=== PATIENT | male | born 1945 | race Caucasian/White ===

== ENCOUNTER 2017-10-11 20:23 | Inpatient (IN) | payer OTHER, MEDICARE ==
[~2017-10-11] VITALS: Ht 170.2 cm; Wt 57.2 kg
[2017-10-11 20:30] VITALS: BP 119/84
--- NOTE | 2017-10-11 20:30 | NUR ---
MS INTERIOR WIRER NOTES DIRECT ADMIT FROM [place] THIS 72 YO MALE A/O X2-3,BROUGHT IN BY AMBULANCE,HOMELESS,WITH CHIEF COMPLAINTS OF PAINFUL URINATION WITH BLOOD.WITH KNOWN HX OF BPH,CAD,AFIB WITH RVR,ANEMIA.NO NKA.WITH PARK CATH INSERTED FROM [place] DRAINING BLOOD TINGED URINE.SALINE LOCK RIGHT HAND INTACT AND PATENT.NOTED SKIN IRRITATION ON NOSE BRIDGE AND RIGHT FOOT.SLIGHT REDNESS ON BUTTOCKS AND SCROTUM.HARD OF HEARING ON BOTH EARS,NO HEARING AID IN USE.CLAIMED HE HAS MULTIPLE FALL PREVIOUSLY BUT NO INJURY.CLAIMED HE WALKS WITH WALKER.FALL RISK PRECAUTION OBSERVED.BED ON LOWEST POSITION AND LOCKED.CALL LIGHT IN REACH,NEEDS ANTICIPATED.
[2017-10-11 21:00] VITALS: BP 119/84
[2017-10-11 21:47] VITALS: BP 119/84
[2017-10-11] MEDS ORDERED: ONDANSETRON HCL/PF 4 MG/2 ML VIAL IVP PRN (22:00)
[2017-10-11] MEDS ORDERED: MAG HYDROX/AL HYDROX/SIMETH 30 ML UDC PO PRN (22:00)
[2017-10-11] MEDS ORDERED: ZOLPIDEM TARTRATE 5 MG TABLET PO PRN (22:00)
--- NOTE | 2017-10-11 23:00 | NUR ---
MS RN NOTES SEEN BY DR MACHADO WITH ORDERS NOTED AND CARRIED OUT.
[2017-10-11] MEDS ORDERED: CEFTRIAXONE 1 G VIAL ONE (23:28)
[2017-10-11] MEDS: CEFTRIAXONE 1 G in IV NS 0.9% 50 ML IV SCH (23:34)
--- NOTE | 2017-10-11 23:34 | NUR ---
MS RN NOTES STARTED ON ROCEPHIN 1GM IVPB FOR UTI.
[2017-10-12] MEDS: ACETAMINOPHEN 325 MG TABLET PO PRN ×3 (03:18→17:37)
--- NOTE | 2017-10-12 03:18 | NUR ---
MS RN NOTES C/O PAIN 10/04 VIA LOWER ABDOMEN,MEDICATED WITH TYLENOL 650MG PO ORDERED FOR MILD PAIN
[2017-10-12 06:36] LABS: BASOPHILS # (AUTO) 0.1 /CMM (0.0-0.2); BASOPHILS % (AUTO) 0.8 % (0.0-2.0); EOSINOPHILS # (AUTO) 0.2 /CMM (0.0-0.7); HEMATOCRIT 34 % (39-51); HEMOGLOBIN 11.7 g/dL (13.5-17.5); LYMPHOCYTES # (AUTO) 1.9 /CMM (0.8-4.8); LYMPHOCYTES % (AUTO) 24.3 % (20.0-44.0); MEAN CORPUSCULAR HEMOGLOBIN 31 PG (26.0-33.0); MEAN CORPUSCULAR HGB CONC 34 g/dl (31.0-36.0); MEAN CORPUSCULAR VOLUME 90 fL (80-96); MONOCYTES # (AUTO) 0.7 /CMM (0.1-1.30); MONOCYTES % (AUTO) 9.4 % (2.0-12.0); NEUTROPHILS % (AUTO) 63.5 % (43.0-81.0); PLATELET COUNT (AUTO) 240 /CMM (150-450); RDW COEFFICIENT OF VARIATION 14.3 (11.5-15.0); WHITE BLOOD COUNT (AUTO) 7.9 K/uL (4.3-11.0)
--- NOTE | 2017-10-12 06:42 | NUR ---
MS RN NOTES SLEPT WITH INTERVALS.HE LIKES TO EAT,ASKING FOR FOOD ALL THE TIME.SALINE LOCK RIGHT HAND INTACT AND PATENT.PATIENT REQUESTED IRRIGATION OF PARK CATH,DONE WITH NO RESISTANCE.NO ACTIVE HEMATURIA NOTED.IN NO ACUTE DISTRESS.WILL ENDORSE TO DAY NURSE FOR MARVA.
[2017-10-12 07:00] LABS: CALCIUM, SERUM 8.8 mg/dL (8.5-10.1); CARBON DIOXIDE 21 mmol/L (21-32); CHLORIDE 104 mmol/L (98-107); CREATININE 0.9 mg/dL (0.6-1.3); GLUCOSE 121 mg/dL (74-106); MAGNESIUM 1.9 mg/dL (1.8-2.4); PHOSPHORUS 3.3 mg/dL (2.5-4.9); POTASSIUM 3.7 mmol/L (3.5-5.1); SODIUM SERUM 138 mmol/L (136-145); UREA NITROGEN, BLOOD 21 mg/dL (7-18)
--- NOTE | 2017-10-12 07:30 | NUR ---
RN MS NOTES PT IN BED, AWAKE, ALERT AND ORIENTED, HARD OF HEARING, NO COMPLAINT OF PAIN AT THIS TIME, RESPIRATIONS REGULAR, F/C INTACT AND DRAINING WELL WITH ORANGE COLORED URINE, CALL LIGHT WITHIN REACH, NEEDS ATTENDED.
[2017-10-12 08:00] VITALS: BP 110/76
[2017-10-12] MEDS: FINASTERIDE (5 MG) 5 MG TABLET PO SCH (08:55)
--- NOTE | 2017-10-12 12:47 | NUR ---
RN MS NOTES PT IN BED, AWAKE, ALERT AND ORIENTED, NO SIGN OF DISTRESS, CALL LIGHT WITHIN REACH, F/C DRAINING WELL, KEPT WARM AND COMFORTABLE IN BED, NEEDS ATTENDED.
[2017-10-12] MEDS: HYDROCODONE/APAP 5/325MG 1 EACH TABLET PO PRN ×2 (14:38→19:16)
--- NOTE | 2017-10-12 15:36 | NUR ---
RN MS NOTES PT IN BED, AWAKE, ALERT AND ORIENTED, PAIN MEDS GIVEN ORDERED, F/C DRAINING WELL WITH ORANGE COLORED URINE WITH SOME SEDIMENTS, SEEN BY WILMAR EXECUTIVE HOUSEKEEPER, PLAN OF CARE DISCUSSED WITH PT, CALL LIGHT WITHIN REACH, NEEDS ATTENDED.
[2017-10-12 16:00] VITALS: BP 117/66
--- NOTE | 2017-10-12 19:20 | NUR ---
RN MS NOTES PT IN BED, AWAKE, ALERT AND ORIENTED, BREATHING PATTERN NORMAL, WATCHING TV, TOLERATES CURRENT DIET, WITH GOOD APPETITE, F/C DRAINING WELL WITH ORANGE/YELLOWISH COLORED URINE WITH SOME SEDIMENTS, ENCOURAGED INCREASED FLUID INTAKE, VERBALIZED UNDERSTANDING, PT REFUSES PM CARE, ALL NEEDS ATTENDED.
[2017-10-12 20:00] VITALS: BP 97/60
[2017-10-12] MEDS: TAMSULOSIN 0.4 MG CAP.SR.24H PO SCH (22:11)
[2017-10-12] MEDS: CEFTRIAXONE 1 G in IV NS 0.9% 50 ML IV SCH (23:53)
--- NOTE | 2017-10-13 06:20 | NUR ---
MS RN NOTES AWAKE & RESPONSIVE. NOT IN ANY DISTRESS. NO SOB NOTED. DENIES ANY PAIN OR DISCOMFORT AT THIS TIME. WITH IVF INFUSING WELL. WITH F/C DRAINING YELLOWISH OUTPUT MODERATE IN AMOUNT. AM CARE DONE. MONITORED ACCORDINGLY. CALL LIGHT WITHIN REACH. BED IN LOWEST POSITION. SR UP X 2 FOR SAFETY. WILL ENDORSE TO NEXT SHIFT.
[2017-10-13 08:00] VITALS: BP 112/75
[2017-10-13] MEDS: FINASTERIDE (5 MG) 5 MG TABLET PO SCH (09:01)
[2017-10-13] MEDS: HYDROCODONE/APAP 5/325MG 1 EACH TABLET PO PRN ×3 (09:01→18:40)
[2017-10-13 16:00] VITALS: BP 118/81
--- NOTE | 2017-10-13 16:02 | NUR ---
RN NOTESl: WILMAR ROBERTS NP, AWARE OF CT RESULTS. PER HER ORDERS. DO NOT REMOVE PARK CATHETER
--- NOTE | 2017-10-13 17:09 | NUR ---
Import Manager consult was requested from Dr. Kam in regards to homelessness. Pt is a 72 year old male who was admitted to [facility] from [place] due to painful urination with blood. Patient is oriented x4. Patients emergency contact is his daughter Kaylen ([phone]). Patient reports that he has been living in his car prior to admission. Patient denies use of cigarettes, drugs or alcohol. Patient denies any suicidal or homicidal ideation. Patient states that he wants placement and does not want to live in his car. SW spoke to case management who reported that they would look into SNF for the patient. GLORIA spoke to LESA Calles in regards to pt.'s disposition and discharge plan. Plan: Case Management will follow up with [facility] for the patient.
--- NOTE | 2017-10-13 19:30 | NUR ---
RN NOTES: PATIENT RESTING IN BED. NONLABORED BREATHING NOTED ON ROOM AIR. NO SIGNS OF DISTRESS NOTES. PATIENT STATING THAT GENERALIZED PAIN IS "BETTER NOW" PATIENT STABLE THROUGHOUT SHIFT. PARK CATHETER INTACT. PATIENT KEPT CLEAN AND DRY THROUGHOUT SHIFT. IV LINE INTACT ON RIGHT HAND. BED IN LOWEST LOCKED POSITION. CALL LIGHT WITHIN REACH. ENDORSED TO NEXT SHIFT
--- NOTE | 2017-10-13 19:40 | NUR ---
RN NOTE; PT IN BED AWAKE AND RESPONSIVE BREATHING EVENLY. NO SOB. NAD ,SKIN WARM AND DRY. F/C IN PLACE DRAINING YELLOW URINE W/ SEDIMENTS AND TINGE OF BLOOD. NEEDS ATTENDED. BED LOW LOCKED .CALL LIGHT WITHIN REACH, WILL CONT TO MONITOR .
[2017-10-13 19:59] VITALS: BP 117/67
[2017-10-13 20:00] VITALS: BP 117/67
[2017-10-13] MEDS: TAMSULOSIN 0.4 MG CAP.SR.24H PO SCH (21:58)
[2017-10-13] MEDS: CEFTRIAXONE 1 G in IV NS 0.9% 50 ML IV SCH (23:22)
--- NOTE | 2017-10-14 06:47 | NUR ---
PT IN BED AWAKE AND ALERT. BREATHING EVENLY. NO SOB. NAD SKIN WARM AND DRY . NO C/O PAIN OR DISCOMFORT . F/C IN PLACE DRAINING CLEAR URINE. NEEDS ATTENDED. ASSISTED W/ ADLS. BED LOW LOCKED. CALL LIGHT WITHIN REACH. WILL CONT TO MONITOR AND WILL ENDORSE TO AM SHIFT FOR MARVA.
[2017-10-14 07:17] LABS: CALCIUM, SERUM 8.3 mg/dL (8.5-10.1); CARBON DIOXIDE 26 mmol/L (21-32); CHLORIDE 103 mmol/L (98-107); CREATININE 0.7 mg/dL (0.6-1.3); GLUCOSE 100 mg/dL (74-106); MAGNESIUM 1.9 mg/dL (1.8-2.4); PHOSPHORUS 3.6 mg/dL (2.5-4.9); POTASSIUM 4.1 mmol/L (3.5-5.1); SODIUM SERUM 137 mmol/L (136-145); UREA NITROGEN, BLOOD 15 mg/dL (7-18)
[2017-10-14 07:19] LABS: BASOPHILS % (AUTO) 0.8 % (0.0-2.0); EOSINOPHILS # (AUTO) 0.2 /CMM (0.0-0.7); EOSINOPHILS % (AUTO) 2.9 % (0.0-6.0); HEMATOCRIT 33 % (39-51); HEMOGLOBIN 11.6 g/dL (13.5-17.5); LYMPHOCYTES # (AUTO) 1.9 /CMM (0.8-4.8); LYMPHOCYTES % (AUTO) 31.6 % (20.0-44.0); MEAN CORPUSCULAR HEMOGLOBIN 31 PG (26.0-33.0); MEAN CORPUSCULAR HGB CONC 35 g/dl (31.0-36.0); MEAN CORPUSCULAR VOLUME 90 fL (80-96); MONOCYTES # (AUTO) 0.6 /CMM (0.1-1.30); MONOCYTES % (AUTO) 10.5 % (2.0-12.0); NEUTROPHILS # (AUTO) 3.3 /CMM (1.8-8.9); NEUTROPHILS % (AUTO) 54.2 % (43.0-81.0); PLATELET COUNT (AUTO) 243 /CMM (150-450); RDW COEFFICIENT OF VARIATION 14.3 (11.5-15.0); RED BLOOD CELL COUNT(AUTO) 3.72 MIL/uL (4.5-6.0); WHITE BLOOD COUNT (AUTO) 6.1 K/uL (4.3-11.0)
--- NOTE | 2017-10-14 07:30 | NUR ---
MS/RN OPENING NOTE PATIENT ALERT AND ORIENTED X3. HARD ON HEARING. RESPIRATION REGULAR AND UNLABORED. DENIES SOB, PAIN AT THIS TIME. IN NO APPARENT DISTRESS. RIGHT WRIST G 20 PATENT. BED LOW AND LOCKED. SIDE RAILS UP X2. CALL LIGHT WITHIN REACH. WILL CONTINUE TO MONITOR.
[2017-10-14 08:00] VITALS: BP 121/78
[2017-10-14] MEDS: FINASTERIDE (5 MG) 5 MG TABLET PO SCH (08:44)
[2017-10-14] MEDS: HYDROCODONE/APAP 5/325MG 1 EACH TABLET PO PRN ×3 (08:45→21:51)
--- NOTE | 2017-10-14 12:29 | NUR ---
MS/RN NOTE RECEIVED NEW ORDER FROM DR HARRY. THE ORDER READ BACK, VERIFIED. NOTED AND CARRIED OUT.
[2017-10-14 16:00] VITALS: BP 110/73
--- NOTE | 2017-10-14 18:33 | NUR ---
MS/RN CLOSING NOTE PATIENT ALERT AND ORIENTED X3. DENIES SOB AT THIS TIME. RESPIRATION REGULAR AND UNLABORED. DENIES PAIN AT THIS TIME. PATIENT HARD OF HEARING. RIGHT WRIST G 2 PATENT. BED LOW AND LOCKED. SIDE RAILS UP X3. CALL LIGHT WITHIN REACH. WILL ENDORSE TO HEAVY EQUIPMENT OPERATOR.
--- NOTE | 2017-10-14 19:30 | NUR ---
RN NOTE; PT IN BED AWAKE AND RESPONSIVE BREATHING EVENLY. NO SOB. NAD ,SKIN WARM AND DRY. F/C IN PLACE DRAINING YELLOW URINE W/ SEDIMENTS . NO HEMATURIA NOTED AT THIS TIME. NEEDS ATTENDED. BED LOW LOCKED .CALL LIGHT WITHIN REACH, WILL CONT TO MONITOR .
[2017-10-14 20:00] VITALS: BP 120/77
[2017-10-14] MEDS: TAMSULOSIN 0.4 MG CAP.SR.24H PO SCH (21:47)
--- NOTE | 2017-10-14 21:54 | NUR ---
NORCO GIVEN FOR C/O MOD GENERALIZED BODY PAIN. WILL CONT TO MONITOR
[2017-10-15] MEDS: CEFTRIAXONE 1 G in IV NS 0.9% 50 ML IV SCH (00:22)
--- NOTE | 2017-10-15 07:49 | NUR ---
PT IN BED AWAKE AND ALERT. BREATHING EVENLY. NO SOB. NO ACUTE EVENT DURING THE NIGHT. PAIN MEDICATIONS GIVEN ORDERED PER PT'S REQUEST. EFFECTIVE. F/C IN PLACE DRAINING CLOUDY YELLOW URINE..NEEDS ATTENDED. ASSISTED W/ ADLS. CALL LIGHT WITHIN REACH. WILL CONT TO MONITOR AND WILL ENDORSE TO AM SHIFT FOR MARVA.
[2017-10-15 08:00] VITALS: BP 103/69
--- NOTE | 2017-10-15 08:00 | NUR ---
MS/RN AM NOTE PATIENT ALERT AND ORIENTED X3.RESPIRATION REGULAR AND UNLABORED. DENIES SOB, PAIN AT THIS TIME. IN NO APPARENT DISTRESS. RIGHT FA G 22 PATENT. BED LOW AND LOCKED. SIDE RAILS UP X2. CALL LIGHT WITHIN REACH. WILL CONTINUE TO MONITOR.
[2017-10-15] MEDS: FINASTERIDE (5 MG) 5 MG TABLET PO SCH (09:08)
[2017-10-15] MEDS: HYDROCODONE/APAP 5/325MG 1 EACH TABLET PO PRN ×2 (09:11→21:44)
--- NOTE | 2017-10-15 11:00 | NUR ---
SEEN BY DR LAWRENCE AND CAME TO CHECKED ON THE TOENAILS WITH ORDERS CARRIED OUT.
--- NOTE | 2017-10-15 11:00 | NUR ---
PT AMBULATED WITH P.T. USING FWW ALONG THE HALLWAY-TOLERATED WELL.DENIES ANY DISTRESS OR DISCOMFORT.
[2017-10-15 11:13] LABS: *TESTOSTERONE, SERUM 508 ng/dL (264-916)
[2017-10-15 16:00] VITALS: BP 106/72
[2017-10-15] MEDS: CLOTRIMAZOLE 1% 15 GM TUBE TP SCH (17:52)
--- NOTE | 2017-10-15 19:12 | NUR ---
PT RESTING IN BED DENYING ANY PAIN OR DISTRESS.CALL LIGHT PLACED WITHIN REACH.
[2017-10-15 20:00] VITALS: BP 108/64
[2017-10-15] MEDS: TAMSULOSIN 0.4 MG CAP.SR.24H PO SCH (21:44)
[2017-10-16] MEDS: CEFTRIAXONE 1 G in IV NS 0.9% 50 ML IV SCH (00:04)
[2017-10-16 06:34] LABS: CALCIUM, SERUM 8.4 mg/dL (8.5-10.1); CARBON DIOXIDE 26 mmol/L (21-32); CHLORIDE 103 mmol/L (98-107); CREATININE 0.8 mg/dL (0.6-1.3); GLUCOSE 95 mg/dL (74-106); POTASSIUM 4.3 mmol/L (3.5-5.1); SODIUM SERUM 138 mmol/L (136-145); UREA NITROGEN, BLOOD 18 mg/dL (7-18)
[2017-10-16 06:36] LABS: BASOPHILS # (AUTO) 0.1 /CMM (0.0-0.2); BASOPHILS % (AUTO) 1.6 % (0.0-2.0); EOSINOPHILS # (AUTO) 0.3 /CMM (0.0-0.7); EOSINOPHILS % (AUTO) 4.1 % (0.0-6.0); HEMATOCRIT 33 % (39-51); HEMOGLOBIN 11.5 g/dL (13.5-17.5); LYMPHOCYTES # (AUTO) 2.4 /CMM (0.8-4.8); LYMPHOCYTES % (AUTO) 36.7 % (20.0-44.0); MEAN CORPUSCULAR HEMOGLOBIN 31 PG (26.0-33.0); MEAN CORPUSCULAR HGB CONC 35 g/dl (31.0-36.0); MEAN CORPUSCULAR VOLUME 90 fL (80-96); MONOCYTES # (AUTO) 0.9 /CMM (0.1-1.30); MONOCYTES % (AUTO) 13.2 % (2.0-12.0); NEUTROPHILS # (AUTO) 2.9 /CMM (1.8-8.9); NEUTROPHILS % (AUTO) 44.4 % (43.0-81.0); PLATELET COUNT (AUTO) 258 /CMM (150-450); RDW COEFFICIENT OF VARIATION 14.5 (11.5-15.0); RED BLOOD CELL COUNT(AUTO) 3.68 MIL/uL (4.5-6.0); WHITE BLOOD COUNT (AUTO) 6.5 K/uL (4.3-11.0)
[2017-10-16 08:00] VITALS: BP 116/82
--- NOTE | 2017-10-16 08:00 | NUR ---
MS/RN AM NOTE PATIENT ALERT AND ORIENTED X3.RESPIRATION REGULAR AND UNLABORED. DENIES SOB, PAIN AT THIS TIME. IN NO APPARENT DISTRESS. RIGHT FA G 22 PATENT.WITH PARK CATHETER INTACT DRAINING YELLOW URINE OUTPUT.ASSISTED TO TOILET WITH FWW PRN. BED LOW AND LOCKED. SIDE RAILS UP X2. CALL LIGHT WITHIN REACH. WILL CONTINUE TO MONITOR.
[2017-10-16] MEDS: FINASTERIDE (5 MG) 5 MG TABLET PO SCH (08:41)
[2017-10-16] MEDS: CLOTRIMAZOLE 1% 15 GM TUBE TP SCH ×2 (08:43→16:19)
[2017-10-16 11:16] LABS: *TESTOSTERONE, FREE (DIRECT) 6.1 pg/mL (6.6-18.1)
[2017-10-16] MEDS ORDERED: FINA5TAB3 PO (13:47)
[2017-10-16] MEDS ORDERED: TAMS-12 PO (13:47)
--- NOTE | 2017-10-16 15:18 | NUR ---
REPORT CALLED IN TO LESA GREEN AUTOMATIC I THREADING MACHINE FEEDER OF [facility] AND MADE AWARE THAT PT WILL BE PICKED UP AT 1800 BY AMBULANCE.IV H/L REMOVED TO [facility] WITHOUT BLEEDING NOTED.PT TOLERATED WELL.WE'LL DISCHARGE PT WITH PARK CATHETER BECAUSE PT WAS RETAINING URINE IN [place] WHERE PT CAME FROM DUE TO BPH,LESA GREEN OF [facility] AWARE AND STATED TO JUST LEAVE THE PARK CATH INTACT.
[2017-10-16 16:00] VITALS: BP 116/79
[2017-10-16] MEDS: HYDROCODONE/APAP 5/325MG 1 EACH TABLET PO PRN (16:19)
--- NOTE | 2017-10-16 18:00 | NUR ---
DISCHARGED PT TO [facility] VIA AMBULANCE WITH STABLE V/S.DENIES ANY PAIN OR DISTRESS.IV H/L REMOVED TO [facility] WITH NO BLEEDING NOTED.
== END 2017-10-16 18:49 | DRG 463 ==
LOC: MEDSG2 20:23
PROVIDERS: ADMIT Nurse Practitioner Acute Care; ATTEND Nurse Practitioner Acute Care
DX: N39.0 Urinary tract infection, site not specified (principal); N17.0 Acute kidney failure with tubular necrosis; I48.91 Unspecified atrial fibrillation; D64.9 Anemia, unspecified; I10 Essential (primary) hypertension; B35.1 Tinea unguium; H91.90 Unspecified hearing loss, unspecified ear; I25.10 Atherosclerotic heart disease of native coronary artery without angina pectoris; N40.1 Benign prostatic hyperplasia with lower urinary tract symptoms; Z59.0 Homelessness; Z87.440 Personal history of urinary (tract) infections; L84 Corns and callosities
CPT/HCPCS: 36415; 80048-TC; 83735-TC; 84100-TC; 84402; 84403; 84443-TC; 85025-TC; 87081-TC; 87086-TC; 97116-TC; 97530-TC; A4216; A6402; J0696; J7050; Z7610